=== PATIENT | female | born 1960 | race African-American/Black ===

== ENCOUNTER 2017-06-18 13:22 | Emergency (ER) | payer OTHER, MEDICAID ==
[~2017-06-18] VITALS: Ht 170.2 cm; Wt 75.0 kg
[~2017-06-18 13:22] MED LIST: INSHUMSS SUBCUT; INSU3INS6 SUBCUT; LOSA50TA20 PO; METF-517 PO
[2017-06-18 14:13] VITALS: BP 159/69
== END 2017-06-18 18:29 | disposition left against medical advice (07) ==
LOC: ER 17:25
DX: Z53.21 Procedure and treatment not carried out due to patient leaving prior to being seen by health care provider (principal)

== ENCOUNTER 2018-04-25 07:01 | Emergency (ER) | payer OTHER, MEDICAID ==
[~2018-04-25] VITALS: Ht 170.2 cm; Wt 76.0 kg
[2018-04-25] MEDS ORDERED: SODIUM CHLORIDE 0.9% 1,000 ML IV ONE (09:15)
[2018-04-25 09:17] LABS: BASOPHILS % 1.1 % (0.0-2.0); EOSINOPHILS % 1.5 % (0.0-5.0); HEMATOCRIT. 43.8 % (36.0-48.0); HEMOGLOBIN. 14.4 g/dL (12.0-16.0); LYMPHOCYTES % 27.1 % (20.0-50.0); MEAN CORPUSCULAR HEMOGLOBIN 28.3 pg (28.0-32.0); MEAN PLATELET VOLUME 7.2 fl (7.4-10.4); MONOCYTES % 5.2 % (2.0-8.0); NEUTROPHILS % 65.1 % (40.0-76.0); PLATELET 410 x1000/uL (130-400); RED CELL DISTRIBUTION WIDTH 14.4 % (11.6-14.6)
[2018-04-25 09:22] LABS: CHLORIDE 101 mEq/L (98-107)
[2018-04-25 09:31] LABS: BETA HYDROXYBUTYRATE 0.3 mMol/L (0.0-0.3)
[2018-04-25 09:56] LABS: CLARITY URINE CLOUDY (CLEAR); COLOR URINE YELLOW (YELLOW); KETONES URINE TRACE (NEGATIVE); LEUKOCYTE ESTERASE URINE 2+ (NEGATIVE); NITRITE URINE NEGATIVE (NEGATIVE); OCCULT BLOOD URINE NEGATIVE (NEGATIVE); PROTEIN URINE TRACE (NEGATIVE); SPECIFIC GRAVITY URINE 1.039 (1.005-1.030); UROBILINOGEN URINE 0.2 E.U./dL (0.2-1.0)
[2018-04-25] MEDS ORDERED: INSULIN REGULAR (HUMULIN R) 300UNITS/3ML SUBCUT ONE (11:15)
[2018-04-25 12:22] VITALS: BP 153/75
== END 2018-04-25 12:24 | disposition home or self-care (01) ==
LOC: ER 07:01
DX: A59.01 Trichomonal vulvovaginitis (principal); E11.65 Type 2 diabetes mellitus with hyperglycemia; I10 Essential (primary) hypertension; Z88.0 Allergy status to penicillin; Z88.6 Allergy status to analgesic agent; Z79.4 Long term (current) use of insulin
CPT/HCPCS: 36415; 80053; 81003; 82010; 82962; 85025; 87077; 87086; 87210; 96360; 96372; 99283; J1815; J7030

== ENCOUNTER 2022-01-10 19:25 | Inpatient (IN) | payer BC, MEDICAID ==
[~2022-01-10] VITALS: Ht 172.7 cm; Wt 75.3 kg
[~2022-01-10 19:25] MED LIST changes: -LOSA50TA20 PO; +LOSA50TA41 PO; -METF-517 PO; +METF-817 PO
[2022-01-10 20:37] LABS: BASOPHILS % 1.2 % (0.0-2.0); EOSINOPHILS % 1.4 % (0.0-5.0); HEMATOCRIT. 39.2 % (36.0-48.0); HEMOGLOBIN. 13.4 g/dL (12.0-16.0); LYMPHOCYTES % 44.6 % (20.0-50.0); MEAN PLATELET VOLUME 7.7 fl (7.4-10.4); MONOCYTES % 7.5 % (2.0-8.0); NEUTROPHILS % 45.3 % (40.0-76.0); PLATELET 333 x1000/uL (130-400); RED BLOOD CELL COUNT 4.62 mill/uL (4.2-5.4); RED CELL DISTRIBUTION WIDTH 14.3 % (11.6-14.6)
[2022-01-10 20:58] LABS: CHLORIDE 102 mEq/L (98-107)
[2022-01-11 03:45] VITALS: BP_SYST 167; BP_SYST 169; BP_DIAS 71
[2022-01-11] MEDS ORDERED: GABA-290 MT (04:33)
[2022-01-11] MEDS ORDERED: CARV6.2548 MT (04:33)
[2022-01-11] MEDS ORDERED: AMLO5TAB88 PO (04:33)
[2022-01-11] MEDS ORDERED: PANT40TA51 PO (04:33)
[2022-01-11] MEDS ORDERED: TRAM50TA3 MT (04:33)
[2022-01-11] MEDS ORDERED: DEXTROSE 50% WATER 50ML SYRINGE IV PRN (04:45)
[2022-01-11] MEDS ORDERED: CLONIDINE 0.1MG TABLET PO PRN (05:30)
[2022-01-11] MEDS ORDERED: PNEUMOCOCCAL 23-VAL P-SAC VAC 0.5 ML IM ONE (06:00)
[2022-01-11] MEDS ORDERED: CLONIDINE 0.1MG TABLET PO SCH (06:00)
[2022-01-11] MEDS ORDERED: INFLUENZA VACCINE 05/PF 0.5 ML SYRINGE IM ONE (06:00)
[2022-01-11] MEDS: CLOPIDOGREL 75MG TABLET PO SCH (06:37)
[2022-01-11] MEDS: TRAMADOL 50MG TABLET PO PRN ×3 (06:37→21:04)
[2022-01-11] MEDS: ASPIRIN 81MG TABLET PO SCH (06:37)
[2022-01-11] MEDS: BLOOD SUGAR DIAGNOSTIC STRIP TEST SCH ×4 (07:40→21:04)
[2022-01-11 08:00] VITALS: BP 170/67
[2022-01-11] MEDS: PANTOPRAZOLE 40MG DR TABLET PO SCH (08:32)
[2022-01-11] MEDS: AMLODIPINE 5MG TABLET PO SCH (08:32)
[2022-01-11] MEDS: CARVEDILOL 6.25 MG TABLET PO SCH ×2 (08:32→21:04)
[2022-01-11] MEDS: GABAPENTIN 300MG CAPSULE PO SCH ×2 (08:33→18:00)
[2022-01-11] MEDS: ENOXAPARIN 40MG/0.4ML SYR SUBCUT SCH (08:34)
[2022-01-11] MEDS: INSULIN LISPRO 100 UNITS/ML SUBCUT SCH ×4 (08:35→21:00)
[2022-01-11 11:30] LABS: EOSINOPHILS % 1.6 % (0.0-5.0); HEMATOCRIT. 40.1 % (36.0-48.0); HEMOGLOBIN. 13.6 g/dL (12.0-16.0); LYMPHOCYTES % 45.2 % (20.0-50.0); MEAN CORPUSCULAR HEMOGLOBIN 28.5 pg (28.0-32.0); MEAN CORPUSCULAR VOLUME 84.1 fL (81.0-99.0); MEAN PLATELET VOLUME 8.2 fl (7.4-10.4); MONOCYTES % 6.3 % (2.0-8.0); NEUTROPHILS % 45.9 % (40.0-76.0); PLATELET 354 x1000/uL (130-400); RED BLOOD CELL COUNT 4.77 mill/uL (4.2-5.4); RED CELL DISTRIBUTION WIDTH 14.2 % (11.6-14.6)
[2022-01-11 12:00] VITALS: BP 133/73
[2022-01-11 13:08] LABS: CHLORIDE 102 mEq/L (98-107)
[2022-01-11 13:29] LABS: LDL CHOLESTEROL 182 mg/dL (5-100)
[2022-01-11 13:52] LABS: HDL CHOLESTEROL 42 mg/dL (40-59)
[2022-01-11 16:00] VITALS: BP 134/62
[2022-01-11 20:00] VITALS: BP 137/71
[2022-01-11] MEDS: ATORVASTATIN CALCIUM 40MG TABLET PO SCH (21:04)
[2022-01-11] MEDS: INSULIN GLARGINE 100 UNITS/ML SUBCUT SCH (21:04)
[2022-01-11] MEDS ORDERED: NALOXONE HCL 0.4MG/ML VIAL IV PRN (23:30)
[2022-01-12] VITALS: BP 140/67
[2022-01-12 04:00] VITALS: BP 131/72
[2022-01-12] MEDS: BLOOD SUGAR DIAGNOSTIC STRIP TEST SCH ×4 (06:31→21:37)
[2022-01-12] MEDS: INSULIN LISPRO 100 UNITS/ML SUBCUT SCH ×5 (06:31→21:00)
[2022-01-12] MEDS: PANTOPRAZOLE 40MG DR TABLET PO SCH (06:35)
[2022-01-12 06:47] LABS: BASOPHILS % 1.1 % (0.0-2.0); EOSINOPHILS % 3.1 % (0.0-5.0); HEMOGLOBIN. 12.6 g/dL (12.0-16.0); LYMPHOCYTES % 40.3 % (20.0-50.0); MEAN CORPUSCULAR HEMOGLOBIN 28.8 pg (28.0-32.0); MEAN PLATELET VOLUME 8.4 fl (7.4-10.4); MONOCYTES % 11.2 % (2.0-8.0); NEUTROPHILS % 44.3 % (40.0-76.0); PLATELET 338 x1000/uL (130-400); RED BLOOD CELL COUNT 4.36 mill/uL (4.2-5.4); RED CELL DISTRIBUTION WIDTH 14.2 % (11.6-14.6)
[2022-01-12 08:00] VITALS: BP 140/70
[2022-01-12] MEDS: DULOXETINE HCL 20MG DR CAPSULE PO SCH (08:46)
[2022-01-12] MEDS: GABAPENTIN 300MG CAPSULE PO SCH ×2 (08:46→18:21)
[2022-01-12] MEDS: CLOPIDOGREL 75MG TABLET PO SCH (08:46)
[2022-01-12] MEDS: AMLODIPINE 5MG TABLET PO SCH (08:46)
[2022-01-12] MEDS: ASPIRIN 81MG TABLET PO SCH (08:46)
[2022-01-12] MEDS: CARVEDILOL 6.25 MG TABLET PO SCH ×2 (08:46→21:37)
[2022-01-12] MEDS: ENOXAPARIN 40MG/0.4ML SYR SUBCUT SCH (08:47)
[2022-01-12 09:38] LABS: CHLORIDE 102 mEq/L (98-107)
[2022-01-12] MEDS: INSULIN GLARGINE 100 UNITS/ML SUBCUT SCH ×2 (10:37→21:37)
[2022-01-12 12:00] VITALS: BP 135/75
[2022-01-12 12:29] LABS: CLARITY URINE CLEAR (CLEAR); COLOR URINE YELLOW (YELLOW); KETONES URINE NEGATIVE (NEGATIVE); LEUKOCYTE ESTERASE URINE NEGATIVE (NEGATIVE); NITRITE URINE NEGATIVE (NEGATIVE); OCCULT BLOOD URINE NEGATIVE (NEGATIVE); PROTEIN URINE TRACE (NEGATIVE); SPECIFIC GRAVITY URINE 1.026 (1.005-1.030); UROBILINOGEN URINE 0.2 E.U./dL (0.2-1.0)
[2022-01-12] MEDS: TRAMADOL 50MG TABLET PO PRN (13:48)
[2022-01-12 16:00] VITALS: BP 141/77
[2022-01-12 20:00] VITALS: BP 133/78
[2022-01-12] MEDS ORDERED: ONDANSETRON HCL 4MG/2ML INJ IV PRN (20:15)
[2022-01-12] MEDS: ATORVASTATIN CALCIUM 40MG TABLET PO SCH (21:36)
[2022-01-13] VITALS: BP 133/77
[2022-01-13 04:00] VITALS: BP 139/79
[2022-01-13] MEDS: BLOOD SUGAR DIAGNOSTIC STRIP TEST SCH ×4 (06:31→21:34)
[2022-01-13] MEDS: INSULIN LISPRO 100 UNITS/ML SUBCUT SCH ×7 (06:31→21:28)
[2022-01-13] MEDS: PANTOPRAZOLE 40MG DR TABLET PO SCH (06:32)
[2022-01-13 08:00] VITALS: BP 129/75
[2022-01-13] MEDS: ASPIRIN 81MG TABLET PO SCH (08:53)
[2022-01-13] MEDS: AMLODIPINE 5MG TABLET PO SCH (08:53)
[2022-01-13] MEDS: DULOXETINE HCL 20MG DR CAPSULE PO SCH (08:53)
[2022-01-13] MEDS: CLOPIDOGREL 75MG TABLET PO SCH (08:54)
[2022-01-13] MEDS: ENOXAPARIN 40MG/0.4ML SYR SUBCUT SCH (08:54)
[2022-01-13] MEDS: GABAPENTIN 300MG CAPSULE PO SCH ×2 (08:54→17:41)
[2022-01-13] MEDS: CARVEDILOL 6.25 MG TABLET PO SCH ×2 (08:54→20:34)
[2022-01-13] MEDS: INSULIN GLARGINE 100 UNITS/ML SUBCUT SCH ×2 (11:10→21:30)
[2022-01-13 12:00] VITALS: BP 131/79
[2022-01-13] MEDS: TRAMADOL 50MG TABLET PO PRN ×2 (14:33→21:37)
[2022-01-13 16:00] VITALS: BP 125/80
[2022-01-13 20:00] VITALS: BP 135/65
[2022-01-13] MEDS: FAMOTIDINE 20MG TABLET PO SCH (20:34)
[2022-01-13] MEDS: ATORVASTATIN CALCIUM 40MG TABLET PO SCH (20:35)
[2022-01-14] VITALS: BP 122/60
[2022-01-14 04:00] VITALS: BP 140/65
[2022-01-14] MEDS: TRAMADOL 50MG TABLET PO PRN ×2 (06:40→06:42)
[2022-01-14] MEDS: BLOOD SUGAR DIAGNOSTIC STRIP TEST SCH ×2 (06:40→12:40)
[2022-01-14 08:00] VITALS: BP 131/69
[2022-01-14] MEDS: INSULIN LISPRO 100 UNITS/ML SUBCUT SCH ×4 (08:57→12:59)
[2022-01-14] MEDS: GABAPENTIN 300MG CAPSULE PO SCH (08:58)
[2022-01-14] MEDS: CLOPIDOGREL 75MG TABLET PO SCH (08:58)
[2022-01-14] MEDS: DULOXETINE HCL 20MG DR CAPSULE PO SCH (08:58)
[2022-01-14] MEDS: AMLODIPINE 5MG TABLET PO SCH (08:58)
[2022-01-14] MEDS: ASPIRIN 81MG TABLET PO SCH (08:58)
[2022-01-14] MEDS: CARVEDILOL 6.25 MG TABLET PO SCH (08:58)
[2022-01-14] MEDS: ENOXAPARIN 40MG/0.4ML SYR SUBCUT SCH (09:00)
[2022-01-14] MEDS: FAMOTIDINE 20MG TABLET PO SCH (09:07)
[2022-01-14 09:33] LABS: CHLORIDE 103 mEq/L (98-107)
[2022-01-14] MEDS ORDERED: IOHEXOL-300 100 ML BOTTLE ONE (10:38)
[2022-01-14] MEDS: INSULIN GLARGINE 100 UNITS/ML SUBCUT SCH (11:30)
[2022-01-14 12:00] VITALS: BP 127/70
[2022-01-14 14:06] VITALS: BP 131/79
== END 2022-01-14 15:55 | disposition home or self-care (01) | DRG 92 ==
LOC: ER 19:25 → EDBEDREQTM 01-11 02:07 → EDBEDREQ 01-11 02:07 → ENRESERV 01-11 03:27 → 7WST 01-11 04:30
PROVIDERS: ADMIT Internal Medicine; ATTEND Internal Medicine
DX: R20.0 Anesthesia of skin (principal); E44.0 Moderate protein-calorie malnutrition; I10 Essential (primary) hypertension; E11.65 Type 2 diabetes mellitus with hyperglycemia; E11.40 Type 2 diabetes mellitus with diabetic neuropathy, unspecified; R20.2 Paresthesia of skin; R53.1 Weakness; R51.9 Headache, unspecified; E78.5 Hyperlipidemia, unspecified; F17.210 Nicotine dependence, cigarettes, uncomplicated; F12.90 Cannabis use, unspecified, uncomplicated; Z86.011 Personal history of benign neoplasm of the brain; Z88.0 Allergy status to penicillin; Z88.8 Allergy status to other drugs, medicaments and biological substances; Z79.899 Other long term (current) drug therapy; Z68.25 Body mass index [BMI] 25.0-25.9, adult
CPT/HCPCS: 36415; 70470; 71045; 80048; 80053; 80061; 81003; 82962; 83036; 84439; 84443; 85025; 90686; 90732; 93005; 93306; 97161; 97166; 99285; J1650; J1815; J2405; Q9967

== ENCOUNTER 2022-02-02 13:39 | Emergency (ER) | payer BC, MEDICAID ==
[~2022-02-02] VITALS: Ht 170.2 cm; Wt 70.0 kg
[~2022-02-02 13:39] MED LIST changes: +AMLO5TAB88 PO; +CARV6.2548 MT; +GABA-290 MT; +PANT40TA51 PO; +TRAM50TA3 MT
[2022-02-02 14:02] VITALS: BP 154/88
[2022-02-02] MEDS ORDERED: TETANUS AND DIPHTHERIA TOX/PF 0.5ML SYR (ADULT) IM ONE (14:45)
== END 2022-02-02 16:27 | disposition home or self-care (01) ==
LOC: ER 13:39
DX: M79.671 Pain in right foot (principal); R23.8 Other skin changes; E11.9 Type 2 diabetes mellitus without complications; I10 Essential (primary) hypertension; Z79.4 Long term (current) use of insulin; Z88.0 Allergy status to penicillin; Z88.6 Allergy status to analgesic agent
CPT/HCPCS: 73630; 82962; 90471; 90714; 99283